=== PATIENT | male | born 1995 | race Two or more races ===

== ENCOUNTER 2021-08-16 11:46 | Outpatient (REF) | payer OTHER, SELFPAY | END 2021-08-16 11:47 | disposition home or self-care (01) | LOC: HO.LAB 11:46 | PROVIDERS: Visit Provider Internal Medicine | DX: Z20.822 Contact with and (suspected) exposure to COVID-19 (principal) | CPT/HCPCS: C9803; U0003; U0005 ==

== ENCOUNTER 2023-02-11 15:40 | Emergency (ER) | payer OTHER, SELFPAY ==
--- NOTE | ~2023-02-11 | XR_ITS ---
EXAMINATION: XR KNEE, RIGHT CLINICAL INFORMATION: Pain and swelling. COMPARISON: None available. TECHNIQUE: Two views of the right knee. FINDINGS: No acute fracture or dislocation is seen. Trace suprapatellar joint fluid. Alignment is anatomic. Joint spaces are well maintained. No abnormal soft tissue calcification. There is apparent anterior soft tissue swelling, including overlying the patella and patellar tendon. XR/XR knee RT 2V IMPRESSION: No radiographic evidence of acute osseous abnormality. Apparent soft tissue swelling anteriorly.
[2023-02-11 16:06] VITALS: BP 124/88; PULSE 87; RESP 16; TEMP 37.1; O2SAT 95; BMI 40.6
--- NOTE | 2023-02-11 17:09 | ED_ITS ---
HPI - Extremity Injury (Lower) General Chief Complaint: Extremity Injury, Lower Stated Complaint: knee inj/swollen Time Seen by Provider: 02/11/23 17:06 Source: patient Mode of arrival: ambulatory Limitations: no limitations History of Present Illness HPI Narrative: 28-year-old male with history of previous right knee dislocations presents the ER with complaints of 2 weeks right knee pain. Patient reports that 2 weeks ago he dropped a Fridge on the superior aspect of his right knee. He initially had pain and swelling. He has been using heat and applying topical arnica cream but feels like there is still swelling and pain in the knee. He denies any numbness, tingling distally. He is able to ambulate on the leg. Related Data Previous Rx's Medication Instructions Recorded cephalexin 500 mg capsule 500 mg PO BID #14 caps 02/11/23 naproxen 500 mg tablet 500 mg PO BID PRN pain #20 tabs 02/11/23 Allergies Allergy/AdvReac Type Severity Reaction Status Date / Time seafood Allergy Anaphylaxis Verified 02/11/23 16:05 Review of Systems Review of Systems: Yes all other systems are reviewed and are negative Constitutional: Constitutional: Reports no additional constitutional complaints, Denies body ache(s), Denies chills, Denies fever(s), Denies headache(s) and Denies weakness Eyes: Eyes: Reports no additional eye complaints and Denies change in vision ENT: Reports system reviewed and no additional complaints, except as documented, Denies dizziness, Denies headache(s), Denies nasal congestion, Denies nasal discharge and Denies neck pain Cardiovascular: Cardiovascular: Reports no additional cardiovascular complaints, Denies chest pain, Denies leg edema and Denies dyspnea Respiratory: Respiratory: Reports no additional respiratory complaints, Denies cough and Denies dyspnea Gastrointestinal: Gastrointestinal: Reports no additional gastrointestinal complaints, Denies abdominal pain, Denies diarrhea, Denies nausea and Denies vomiting Genitourinary: Genitourinary: Denies urinary incontinence Musculoskeletal: Musculoskeletal: Reports no additional musculoskeletal complaints, Denies back pain, Reports arthralgias, Reports joint swelling, Denies neck pain, Denies numbness and Denies tingling Integumentary/Breasts: Skin/Breast: Reports system reviewed and no additional complaints, except as docu and Denies rash Neurologic: Denies Abnormal speech present, Denies dizziness, Denies headache(s), Denies numbness, Denies tingling and Denies weakness [facility] Past Medical History Attestation statement: The following information was validated with the patient. Source: old records reviewed and nursing notes reviewed Social History Social History Advance Directives: No Advance Directives Information Provided: No Physical Exam Vital Signs: Vital Signs: Last Vital Signs Temp 98.7 F 02/11/23 16:06 Pulse 87 02/11/23 16:06 Resp 16 02/11/23 16:06 BP 124/88 02/11/23 16:06 Pulse Ox 95 02/11/23 16:06 O2 Del Method Room Air 02/11/23 16:06 BMI result Body Mass Index 40.6 Const: General: cooperative, healthy appearing, comfortable and no acute distress Orientation/consciousness: patient oriented x3 Limitations: no limitations HEENT: Head: Yes normal to inspection Ears: hearing grossly normal bilaterally General nose exam: Normal external nose present Face and sinus: Yes normal facial exam Mouth: Normal oral and palatal mucosa present Throat: Yes posterior oropharynx normal Eyes: General: appearance normal, both eyes and all related structures Pupils: Equal, round and reactive pupils present Neck: Neck: Yes normal visual inspection Chest: Chest palpation & inspection: normal inspection of the chest Resp: Effort & Inspection: normal respiratory effort Auscultation: clear to auscultation bilaterally Cardio: Rate: regular rate Rhythm: regular rhythm Peripheral pulses: P eripheral pulses 2+ throughout GI: Inspection: Yes normal to inspection Palpation (GI): Soft to palpation and nontender Auscultation: normal bowel sounds Back/Spine/Pelvis: Thoracic/Lumbar Spine: thoracic and lumbar spine normal to inspection Skin: General skin exam: no rashes or lesions noted Neuro: General: patient oriented x3, no focal motor deficits and normal sensation to monofilament Cranial nerves: Yes Equal, round and reactive pupils present Cognition (Neuro): normal cognition Speech: No Abnormal speech present Gait exam (Neuro): Normal gait present Motor exam (neuro): 5/5 motor strength present throughout Extrem: Other: Patient was some slight tenderness over the anterior knee-patient able to flex extend the knee with no difficulty. He is able to move the foot and ankle of the right side with no difficulty. He has normal DP and PT pulses. Sensation is intact distally. There is slight warmth and redness noted over the anterior knee General: Yes normal to inspection Course Course Course Narrative: X-ray shows no bony abnormality. There is a trace effusion. Patient given Marcos wrap. Patient was at home with NSAIDs, antibiotic with recommendations follow- up with Orthopedics. Reviewed worrisome signs and symptoms of when to return to the emergency room. Comfortanle with plan for discharge home. Medical Decision Making Medical Decision Making [facility] Narrative: 28-year-old male who had an injury to the right knee 2 weeks ago which sounds ago crush injury still with some swelling and redness and pain to the right knee. There is FROM both actively and passively. CMS Intact distally. There is some mild warmth/redness to the anterior knee but no significant effusion on exam. I doubt a septic joint as patient has full range of motion. There may be some superficial cellulitis and so I will start the patient on oral antibiotic. Due to trauma he will have an x-ray Differential Diagnosis Differential Diagnoses: The differential diagnosis associated with the presentation includes Contusion, ligamental strain Low concern for septic joint, vascular injury, patellar tendon injury Independent Interpretation I performed an independent interpretation of an: Plain X-Ray Interpretation: I independently reviewed the x-ray and agree with radiologist's report Radiology Impression Discussion of test interpretation with radiology: I have reviewed the radiologist's reading. Radiologist Impression: Launch?Image [place] [id number] XRay Report Signed Patient: Osmani Ahn MR#: [id number] : 1995 Acct:[id number] Age/Sex: 28 / M ADM Date: 02/11/23 Loc: HO.ED Attending Dr: Ordering Physician: Generic ED Physician Date of Service: 02/11/23 Procedure(s): XR knee RT 2V Accession Number(s): [id number] cc: Generic ED Physician~ EXAMINATION: XR KNEE, RIGHT? CLINICAL INFORMATION: Pain and swelling.? COMPARISON: None available.? TECHNIQUE: Two views of the right knee. FINDINGS: No acute fracture or dislocation is seen. Trace suprapatellar joint fluid. Alignment is anatomic. Joint spaces are well maintained. No abnormal soft tissue calcification. There is apparent anterior soft tissue swelling, including overlying the patella and patellar tendon. XR/XR knee RT 2V ?IMPRESSION: No radiographic evidence of acute osseous abnormality. ? Apparent soft tissue swelling anteriorly. ? Discharge Plan Discharge Clinical Impression: Contusion of knee, right, Cellulitis Patient Disposition: Home, Self-Care Instructions: Cellulitis (ED), Contusion in Adults (ED) Additional Instructions: Ask your primary care doctor for referral to Orthopedics Apply ice, elevate the limb, use Marcos wrap for comfort Take the medications as prescribed Return for inability to bend or straighten the knee, fever greater than 100.4, increased redness or swelling of the extremity Prescriptions: New naproxen 500 mg tablet 500 mg PO BID PRN (Reason: pain) Qty: 20 0RF cephalexin 500 mg capsule 500 mg PO BID Qty: 14 0RF Referrals: [facility] [Provider Group] - 1 week Physician,Unknown J [Primary Care Provider] - 1 week Stand Alone Forms: Work/School Release
== END 2023-02-11 18:03 | disposition home or self-care (01) ==
PROVIDERS: Emergency Provider Student in an Organized Health Care Education/Training Program
DX: S80.01XA Contusion of right knee, initial encounter (principal); L03.115 Cellulitis of right lower limb; M25.461 Effusion, right knee; X58.XXXA Exposure to other specified factors, initial encounter; Y93.9 Activity, unspecified; Y92.9 Unspecified place or not applicable; Y99.9 Unspecified external cause status
CPT/HCPCS: 73560; 99282; 99283

== ENCOUNTER 2023-05-01 15:37 | Emergency (ER) | payer OTHER, SELFPAY ==
--- NOTE | ~2023-05-01 | XR_ITS ---
EXAMINATION: XR FOREARM, LEFT CLINICAL INFORMATION: Evaluate foreign bodies. COMPARISON: None available. TECHNIQUE: AP and lateral views of the left forearm were obtained. XR/XR forearm LT 2V FINDINGS/IMPRESSION: No acute fractures or malalignment. No joint effusion. Enthesophytes in the olecranon process. Very small 0.2 cm radiopaque body projecting over the deep soft tissues adjacent to the mid ulna on the frontal view. Punctate foreign body projecting over the superficial soft tissues of the anterior proximal forearm on the lateral view, possibly related with the same object reviewed in a different projection.
[2023-05-01 15:44] VITALS: BP 133/70; PULSE 80; RESP 18; TEMP 36.6; O2SAT 97; BMI 40.2
--- NOTE | 2023-05-01 18:12 | ED_ITS ---
HPI - Skin/Abscess/Foreign Bdy General Chief complaint: Skin/Abscess/Foreign Body Stated complaint: Left arm injury Time Seen by Provider: 05/01/23 18:09 Source: patient Mode of arrival: ambulatory Limitations: no limitations History of Present Illness HPI narrative: 28 yo male right hand dominant here with complaints of injury to left forearm. Patient reports he was using a wood metal ceiling builder and a piece of the metal glued wood tester broke off hitting his left arm. Had a puncture site and bleeding after. No weakness, numbness, tingling of the extremity. Last tetanus shot 5 yrs ago Related Data Previous Rx's Medication Instructions Recorded cephalexin 500 mg capsule 500 mg PO BID #14 caps 02/11/23 naproxen 500 mg tablet 500 mg PO BID PRN pain #20 tabs 02/11/23 Allergies Allergy/AdvReac Type Severity Reaction Status Date / Time seafood Allergy Anaphylaxis Verified 02/11/23 16:05 Review of Systems Review of Systems: Yes all other systems are reviewed and are negative Constitutional: Constitutional: Reports no additional constitutional complaints, Denies body ache(s), Denies chills, Denies fever(s), Denies headache(s) and Denies weakness Eyes: Eyes: Reports no additional eye complaints and Denies change in vision ENT: Reports system reviewed and no additional complaints, except as documented, Denies dizziness, Denies headache(s), Denies nasal congestion, Denies nasal discharge and Denies neck pain Cardiovascular: Cardiovascular: Reports no additional cardiovascular complaints, Denies chest pain, Denies leg edema and Denies dyspnea Respiratory: Respiratory: Reports no additional respiratory complaints, Denies cough and Denies dyspnea Gastrointestinal: Gastrointestinal: Reports no additional gastrointestinal complaints, Denies abdominal pain, Denies diarrhea, Denies nausea and Denies vomiting Genitourinary: Genitourinary: Denies urinary incontinence Musculoskeletal: Musculoskeletal: Reports no additional musculoskeletal complaints, Denies back pain, Denies arthralgias, Denies joint swelling, Denies neck pain, Denies numbness and Denies tingling Integumentary/Breasts: Skin/Breast: Reports system reviewed and no additional complaints, except as docu, Reports swelling, Reports erythema and Denies rash Neurologic: Reports system reviewed and no additional complaints, except as documented, Denies Abnormal speech present, Denies dizziness, Denies headache(s), Denies numbness, Denies tingling and Denies weakness [facility] Past Medical History Attestation statement: The following information was validated with the patient. Source: old records reviewed and nursing notes reviewed Social History Social History Advance Directives: No Advance Directives Information Provided: No Physical Exam Vital Signs: Vital Signs: Last Vital Signs Temp 97.9 F 05/01/23 15:44 Pulse 80 05/01/23 15:44 Resp 18 05/01/23 15:44 BP 133/70 05/01/23 15:44 Pulse Ox 97 05/01/23 15:44 O2 Del Method Room Air 05/01/23 15:44 BMI result Body Mass Index 40.2 Const: General: cooperative, healthy appearing, comfortable and no acute distress Orientation/consciousness: patient oriented x3 Limitations: no limitations HEENT: Head: Yes normal to inspection Ears: hearing grossly normal bilater ally General nose exam: Normal external nose present Face and sinus: Yes normal facial exam Mouth: Normal oral and palatal mucosa present Throat: Yes posterior oropharynx normal Eyes: General: appearance normal, both eyes and all related structures Pupils: Equal, round and reactive pupils present Neck: Neck: Yes normal visual inspection Chest: Chest palpation & inspection: normal inspection of the chest Resp: Effort & Inspection: normal respiratory effort Auscultation: clear to auscultation bilaterally Cardio: Rate: regular rate Rhythm: regular rhythm Peripheral pulses: Peripheral pulses 2+ throughout GI: Inspection: Yes normal to inspection Palpation (GI): Soft to palpation and nontender Auscultation: normal bowel sounds Back/Spine/Pelvis: Thoracic/Lumbar Spine: thoracic and lumbar spine normal to inspection Skin: General skin exam: no rashes or lesions noted Neuro: General: patient oriented x3, no focal motor deficits and normal sensation to monofilament Cranial nerves: Yes Equal, round and reactive pupils present Cognition (Neuro): normal cognition Speech: No Abnormal speech present Gait exam (Neuro): Normal gait present Motor exam (neuro): 5/5 motor strength present throughout Extrem: Other: Over the mid volar aspect the left forearm there is a central area of erythema with surrounding ecchymosis with no palpable foreign body CMS intact distally full range of motion a proximal and distal joint General: Yes normal to inspection Course Course Course Narrative: X-ray shows a small foreign body. This was reviewed with the patient. Plan for discharge home with supportive care. Reviewed worrisome signs and symptoms of when to return to the emergency room. Comfortable plan for discharge home. Medical Decision Making Medical Decision Making MDM Narrative: 28-year-old male [id number] here with concern for injury to the left forearm which occurred while working with a wood metal ceiling builder that was metal. Patient is concerned that a piece of the wood metal ceiling builder broke off and hit his left arm. His tetanus is up-to-date. He has an area of erythema and surrounding ecchymosis with normal CMS and full range of motion of the local joints. Will check x-rays to rule out foreign body Differential Diagnosis Differential Diagnoses: The differential diagnosis associated with the presentation includes Contusion, soft tissue foreign body Low concern for fracture, vascular injury Independent Interpretation I performed an independent interpretation of an: Plain X-Ray Interpretation: I independently reviewed the x-ray and there is a very small area of soft tissue foreign body Radiology Impression Discussion of test interpretation with radiology: I have reviewed the radiologist's reading. Radiologist Impression: [place] [id number] XRay Report Signed Patient: Osmani Ahn MR#: [id number] : 1995 Acct:[id number] Age/Sex: 28 / M ADM Date: 05/01/23 Loc: .ED Attending Dr: Ordering Physician: Jenny Pedro NP Date of Service: 05/01/23 Procedure(s): XR forearm LT 2V Accession Number(s): [id number] cc: Jenny Pedro NP~ EXAMINATION: XR FOREARM, LEFT CLINICAL INFORMATION: Evaluate foreign bodies.? COMPARISON: None available.? TECHNIQUE: AP and lateral views of the left forearm were obtained. XR/XR forearm LT 2V FINDINGS/IMPRESSION: No acute fractures or malalignment. No joint effusion. Enthesophytes in the olecranon process. ? Very small 0.2 cm radiopaque body projecting over the deep soft tissues adjacent to the mid ulna on the frontal view. Punctate foreign body projecting over the superficial soft tissues of the anterior proximal forearm on the lateral view, possibly related with the same object reviewed in a different projection.? Prescription Management No signs or symptoms concerning for infection. No need for oral antibiotics Discharge Plan Discharge Clinical Impression: Foreign body (FB) in soft tissue Patient Disposition: Home, Self-Care Instructions: Soft Tissue Foreign Body (ED) Additional Instructions: Return for redness, swelling, drainage, fever Cold compresses Motrin or Tylenol for pain Prescriptions: No Action naproxen 500 mg tablet 500 mg PO BID PRN (Reason: pain) Qty: 20 0RF cephalexin 500 mg capsule 500 mg PO BID Qty: 14 0RF Referrals: Physician,Unknown J [Primary Care Provider] - Interventions: ED Discharge Assessment Last Done: 05/01/23 18:48 Discharge Date/Time: 05/01/23 18:49
== END 2023-05-01 18:49 | disposition home or self-care (01) ==
PROVIDERS: Emergency Provider Student in an Organized Health Care Education/Training Program
DX: S51.842A Puncture wound with foreign body of left forearm, initial encounter (principal); W31.89XA Contact with other specified machinery, initial encounter; Y93.89 Activity, other specified; Y92.9 Unspecified place or not applicable; Y99.9 Unspecified external cause status; M79.5 Residual foreign body in soft tissue
CPT/HCPCS: 73090; 99282; 99283